=== PATIENT | male | born 1940 | race Caucasian/White ===

== ENCOUNTER → 2017-02-27 | Outpatient (CLI) | payer MEDICARE, OTHER ==
--- NOTE | 2017-03-02 08:00 | US ---
EXAM DESCRIPTION: Venous,Lower Extremity RT CLINICAL HISTORY: 76 years, Male, CELLULITIS RIGHT LOWER LEG COMPARISON: None TECHNIQUE: Duplex venous ultrasound of the right lower extremity was performed. FINDINGS: The right lower extremity veins are fully compressible and demonstrate physiologic responses to Valsalva maneuvers. Color Doppler images show no intraluminal filling defect. IMPRESSION: Negative exam. No evidence of DVT in the right lower extremity. Electronically signed by: John Rios MD 03/02/2017 7:59 AM CDT
== END | disposition home or self-care (01) ==
LOC: US 14:01
PROVIDERS: ATTEND Nurse Practitioner Family
DX: R60.0 Localized edema (principal); L03.115 Cellulitis of right lower limb

== ENCOUNTER → 2017-07-06 | Outpatient (CLI) | payer MEDICARE, MEDICAID | END | disposition home or self-care (01) | LOC: GMAB 15:06 | PROVIDERS: ATTEND Family Medicine | DX: I50.22 Chronic systolic (congestive) heart failure (principal); L03.115 Cellulitis of right lower limb; R53.82 Chronic fatigue, unspecified ==

== ENCOUNTER → 2017-08-20 | Outpatient (CLI) | payer MEDICARE, OTHER | END | disposition home or self-care (01) | LOC: GMA 17:20 | PROVIDERS: ATTEND Nurse Practitioner Family | DX: L03.115 Cellulitis of right lower limb (principal) ==

== ENCOUNTER 2017-11-16 09:33 | Inpatient (IN) | payer MEDICARE, OTHER ==
[2017-11-16] MEDS ORDERED: LIDOCAINE 1% 10 ML VIAL INJ ONE (09:54)
[2017-11-16] MEDS ORDERED: CHLORHEXIDINE GLUCONATE 4 % 15 ML UD TOP ONE (09:55)
[2017-11-16] MEDS ORDERED: SODIUM CHLORIDE 0.9% (FLUSH) 10 ML SYG IV PRN ×2 (09:55→12:59)
--- NOTE | 2017-11-16 10:23 | ED.PDOC ---
History of Present Illness - General Chief Complaint: Skin/Abrasion/Tear Stated Complaint: right hand swelling Time Seen by Provider: 11/16/17 09:54 Source: RN/MD, group home records - History of Present Illness Initial Comments: PT SENT TO THE ED FROM [facility] FOR RIGHT HAND SWELLING AND REDNESS THAT HAS FAILED TO IMPROVE ON OUTPATIENT ABX. PT HAS BEEN GIVEN IM ROCEPHIN AND PO BACTRIM WITH OUT IMPROVEMENT OVER THE PAST SEVERAL DAYS. HPI AND ROS LIMITED DUE TO PTS MENTAL CAPACITY. Timing/Duration: 1 week, getting worse Severity: severe Improving Factors: nothing Worsening Factors: nothing Associated Symptoms: denies symptoms Allergies/Adverse Reactions: Allergies Latex Allergy (Verified 11/16/17 09:51) Home Medications: Ambulatory Orders Doxazosin Mesylate 2 mg PO DAILY 11/09/12 Ferrous Sulfate [Iron] 325 mg PO BID #0 tab 11/09/12 Finasteride 5 mg PO DAILY 11/09/12 Gabapentin [Neurontin] 300 mg PO TID 11/09/12 HYDROcodone 5MG/APAP 325MG [[place] 5/325] 1 ea PO Q4-6H PRN #0 tab 11/09/12 Ibuprofen 400 mg PO QID PRN #0 cap 11/09/12 Omeprazole [Prilosec] 20 mg PO DAILY 11/09/12 Paroxetine HCl 40 mg PO HS 11/09/12 Simvastatin 40 mg PO DAILY #0 tab 11/09/12 Simvastatin [Zocor] 80 mg PO 11/09/12 Review of Systems - Review of Systems Constitutional: States: see HPI EENTM: States: see HPI Respiratory: States: see HPI Cardiology: States: see HPI Gastrointestinal/Abdominal: States: see HPI Genitourinary: States: see HPI Musculoskeletal: States: see HPI Skin: States: see HPI Neurological: States: see HPI Endocrine: States: see HPI Hematologic/Lymphatic: States: see HPI Past Medical History (General) - Patient Medical History Hx Seizures: No Hx Stroke: No Hx Cardiac Disorders: No Hx Congestive Heart Failure: No Hx Hypertension: Yes Hx Diabetes: No Hx Gastroesophageal Reflux: Yes Hx MRSA: No - Vaccination History Hx Influenza Vaccination: - unknown Hx Pneumococcal Vaccination: - unknown - Social History Hx Tobacco Use: No Hx Alcohol Use: No Hx Substance Use: No Hx Physical Abuse: No Hx Emotional Abuse: No - Activities of Daily Living Senior Care/Assisted Living (if applicable):: [facility] Family Medical History - Family History Mother Family History: Unknown Physical Exam - Physical Exam General Appearance: Alert, No apparent distress Ears, Nose, Throat: normal ENT inspection Neck: normal inspection Respiratory: lungs clear, normal breath sounds, no respiratory distress Cardiovascular/Chest: regular rate, rhythm, no murmur Gastrointestinal/Abdominal: non tender, soft Extremity: other - SEVERE SWELLING AND REDNESS TO THE DORSUM OF RIGHT HAND, FLUCTUANCE NOTED. REDNESS EXTENDS TOWARD THE WRIST. Neurologic: alert, normal mood/affect Skin Exam: normal color, warm/dry Procedures - Incision and Drainage #1 Site: DORSUM OF RIGHT HAND Procedure and Prep: betadine prep, gauze wick placed - IODOFORM PACKING PLACED, irrigated, pus drained, other - 1% LIDOCAINE INFUSED SC. Blade Size: 11 Procedure Comments: APPROXIMATELY 100CC OF PURULENT DRAINAGE FROM I&D SITE. Departure - Departure Clinical Impression: Abscess Cellulitis Qualifiers: Site of cellulitis: extremity Site of cellulitis of extremity: upper extremity Laterality: right Qualified Code(s): L03.113 - Cellulitis of right upper limb Time of Disposition: 11:04 Disposition: Admit Patient Condition: Fair Departure Forms: ED Discharge - Pt. Copy, Patient Portal Self Enrollment Instructions: DI for Abrasion Referrals: Gilmer Tello MD [Primary Care Provider] - 1-2 Weeks Home Medications: Ambulatory Orders Doxazosin Mesylate 2 mg PO DAILY 11/09/12 Ferrous Sulfate [Iron] 325 mg PO BID #0 tab 11/09/12 Finasteride 5 mg PO DAILY 11/09/12 Gabapentin [Neurontin] 300 mg PO TID 11/09/12 HYDROcodone 5MG/APAP 325MG [[place] 5/325] 1 ea PO Q4-6H PRN #0 tab 11/09/12 Ibuprofen 400 mg PO QID PRN #0 cap 11/09/12 Omeprazole [Prilosec] 20 mg PO DAILY 11/09/12 Paroxetine HCl 40 mg PO HS 11/09/12 Simvastatin 40 mg PO DAILY #0 tab 11/09/12 Simvastatin [Zocor] 80 mg PO 11/09/12 Decision To Admit - Decistion To Admit Decision to Admit Reason: Admit from ER Decision to Admit Date: 01/08/18 - CASE DISCUSSED WITH JOANIE MALONEY NP WHO AGREES TO ADMIT PATIENT. Decision to Admit Time: 11:04
[2017-11-16] MEDS ORDERED: IODOFORM 1/4 INCH 1 EA BTTL TOP ONE (10:27)
[2017-11-16] MEDS ORDERED: VANCOMYCIN HCL INJ 2,000 MG in SODIUM CHLORIDE 0.9% 500ML 500 ML IVPB SCH (10:30)
[2017-11-16] MEDS ORDERED: VANCOMYCIN HCL INJ 1,000 MG VIAL IVPB ONE ×2 (10:31→10:46)
[2017-11-16] MEDS ORDERED: SODIUM CHLORIDE 0.9% 500ML 500 ML ONE ×2 (10:31→10:46)
--- NOTE | 2017-11-16 10:32 | RAD ---
EXAM DESCRIPTION: Right hand, 3 views CLINICAL HISTORY: Right hand cellulitis. Assess for osteomyelitis FINDINGS/ IMPRESSION: Marked dorsal soft tissue swelling consistent with cellulitis. 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 No fracture or acute osteochondral lesion Electronically signed by: Gildardo Garrido MD 11/16/2017 10:31 AM [facility]
--- NOTE | 2017-11-16 12:13 | HP ---
SUPERVISING PHYSICIAN: Gildardo Lewis MD CHIEF COMPLAINT: Right hand swelling and redness. HISTORY OF PRESENT ILLNESS: Mr. Cervantes is a 77-year-old male patient who is a resident at [facility]. Apparently he has had some swelling and redness on his right hand for the last seven days. He was placed on Bactrim as an outpatient and even was given some IM Rocephin over the weekend at [facility]. Given the fact that he did not have any improvement in those symptoms, he came to the Emergency Room today. In the Emergency Room, the Emergency Room physician performed an I&D to the dorsal aspect of the right hand. An estimated 100 mL of purulent drainage was drained from the site. This was irrigated and packed and dressed. Given the degree of cellulitis, the patient was referred for admission. The patient did have some labs which showed white count normal at 7.3, hemoglobin 10.1, hematocrit 30.1, platelet count 233. There is a mild left shift at 85.3. Chemistries were done and showed sodium 129, potassium 5.2, chloride 98, BUN 27, creatinine 1.88, glucose 148, calcium 9.1. An actual x-ray was done of the hand for concern for osteomyelitis. This was negative for findings of osteomyelitis. The patient has been admitted and is in no active distress so far. His vital signs are acceptable. PAST MEDICAL HISTORY: 1. Previous episodes of cellulitis of the hands and the legs which has grown out MRSA in the past. 2. Congestive heart failure. 3. Dementia. 4. Hypertension. 5. Gastroesophageal reflux disease. 6. Gout. 7. Left ventricular hypertrophy. 8. Osteoarthritis. 9. Parkinson's. 10. Syncope. 11. Benign prostatic hypertrophy. PAST SURGICAL HISTORY: 1. Bilateral hip surgeries. 2. Right total knee arthroplasty times 2. It was infected at one point with MRSA and he needed to be on IV vancomycin. 3. Diastolic heart failure. Last ejection fraction was 60% and showed mild left ventricular hypertrophy and was consistent with grade 3 diastolic dysfunction. This was done in July of 2017. CURRENT MEDICATIONS: 1. Lasix 20 mg p.o. daily. 2. Aldactone 25 mg once a day on Thursday/Thursday/Thursday// Thursday. 3. Remeron 15 mg p.o. q.h.s. 4. Metoprolol 50 mg p.o. daily. 5. Ativan 0.5 mg one tablet by mouth 3 times a day. 6. Paroxetine 500 mg p.o. b.i.d. 7. Venelex ointment 87 mg use as directed. 8. Atorvastatin 20 mg p.o. daily. 9. Seroquel 100 mg p.o. b.i.d. 10. Vitamin B12 1000 mcg p.o. daily. 11. Albuterol nebulizer b.i.d. and q.4h. p.r.n. 12. Celexa 10 mg 2 times a day. 13. Prilosec 20 mg p.o. b.i.d. 14. Plavix 75 mg daily. ALLERGIES: NO KNOWN DRUG ALLERGIES. FAMILY HISTORY: Both parents are from unknown causes. He does not report any health problems with any of his brothers or sisters. SOCIAL HISTORY: The patient is a nonsmoker. He used to drink alcohol, but he has been a resident of [facility] for the last year or so. He is . REVIEW OF SYSTEMS: CONSTITUTIONAL: No fever or chills. No recent weight loss or weight gain. HEENT: No headaches, vision changes, ear pain, nasal congestion or sore throat. NECK: No stiffness, swelling or pain. RESPIRATORY: No cough, hemoptysis or pleuritic chest pain. CARDIOVASCULAR: No chest pain, palpitations or peripheral edema. GASTROINTESTINAL: No nausea, vomiting, diarrhea, constipation or abdominal pain. GENITOURINARY: No dysuria, frequency or flank pain. MUSCULOSKELETAL: Positive for various joint pains, but no joint swelling. INTEGUMENTARY: Positive for cellulitis of the right hand as well as he has some redness of the lower extremities. ENDOCRINE: No polydipsia, polyuria, polyphagia. No heat or cold intolerance. HEMATOLOGIC: Positive for easy bruising. No previous transfusion reactions. PHYSICAL EXAMINATION: VITAL SIGNS: Blood pressure 163/85. Heart rate 73. Respiratory rate 24. Temperature 97.3. Oxygen saturation 98%. GENERAL: Mr. Cervantes is a 77-year-old male patient who is chronically ill in appearance, but in no active distress currently. HEENT: Normocephalic, atraumatic. Pupils are equal and reactive. No nasal drainage. Throat with slightly dry buccal mucosa. NECK: Supple. Midline trachea. No jugular venous distention. CHEST: Symmetrical with equal rise and fall of the chest with inspiration and expiration. Lung sounds are diminished in the bases. Otherwise, clear to auscultation bilaterally. CARDIOVASCULAR: Regular rate and rhythm. Normal S1, S2. ABDOMEN: Soft, obese. Positive bowel sounds. GENITOURINARY: Deferred. EXTREMITIES: Lower extremities with bilateral edema and stasis dermatitis with active bilateral lower extremity cellulitis as well. The right hand with some erythema and edema with a dressing in place as well. Active wound was not assessed due to the fact that it was I&D in the Emergency Room and re-dressed. NEUROLOGIC: The patient is alert and oriented. Moves all extremities. Extraocular muscles are intact. LABORATORY: Labs and films are as discussed in history of present illness. ASSESSMENT: 1. Right hand cellulitis which failed outpatient therapy. 2. Bilateral lower extremity cellulitis. 3. Acute kidney injury secondary to dehydration. 4. History of methicillin-resistant Staphylococcus aureus wounds in the past. 5. History of diastolic heart failure. PLAN: 1. At this time, we will utilize vancomycin. I have asked the nurses to actually culture the wound as it was not done in the Emergency Room. We will adjust antibiotics accordingly based on culture results. 2. I have ordered some IV fluids given the fact that he does have acute kidney injury. We will recheck labs in the morning. We will need to monitor for volume overload given his history of diastolic heart failure. 3. We will start on DVT prophylaxis and GI ulcer prophylaxis as well. #[id number] [facility]
[2017-11-16] MEDS ORDERED: IV SET AND CAP CHANGE INJ INJ SCH (13:00)
[2017-11-16] MEDS ORDERED: VANCOMYCIN PER PHARMACY INJ SCH (13:30)
[2017-11-16] MEDS ORDERED: ALBUTEROL SULFATE 2.5 MG/3 ML VIAL NEB ONE ×2 (14:07→17:33)
[2017-11-16] MEDS: IPRATROPIUM/ALBUTEROL 3 ML VIAL INH SCH ×2 (16:25→20:20)
[2017-11-16] MEDS: ENOXAPARIN SODIUM 40 MG/0.4 ML SYG SUBCU SCH (17:40)
[2017-11-16] MEDS ORDERED: PANTOPRAZOLE SODIUM TAB 40 MG PO ONE (20:17)
[2017-11-16] MEDS: SODIUM CHLORIDE 0.9% 1000ML 1,000 ML IVS PRN (20:26)
[2017-11-16] MEDS: QUEtiapine FUMARATE 100 MG TAB PO SCH (21:04)
[2017-11-16] MEDS: MIRTAZAPINE 15 MG TAB PO SCH (21:04)
[2017-11-16] MEDS: LORazepam 0.5 MG TAB PO SCH (22:14)
[2017-11-17] MEDS: PANTOPRAZOLE SODIUM TAB 40 MG PO SCH (06:41)
[2017-11-17] MEDS: LORazepam 0.5 MG TAB PO SCH (07:43)
[2017-11-17] MEDS: ENOXAPARIN SODIUM 40 MG/0.4 ML SYG SUBCU SCH (07:43)
[2017-11-17] MEDS: QUEtiapine FUMARATE 100 MG TAB PO SCH ×2 (07:43→20:49)
[2017-11-17] MEDS: IPRATROPIUM/ALBUTEROL 3 ML VIAL INH SCH ×4 (07:52→20:11)
[2017-11-17] MEDS: SODIUM CHLORIDE 0.9% 1000ML 1,000 ML IVS PRN ×2 (09:14→22:49)
[2017-11-17] MEDS: CLOPIDOGREL 75 MG TAB PO SCH (09:14)
[2017-11-17] MEDS: METOPROLOL TARTRATE 50 MG TAB PO SCH (09:14)
[2017-11-17] MEDS: FUROSEMIDE 40 MG TAB PO SCH (09:15)
[2017-11-17] MEDS: CITALOPRAM HBR 20 MG TAB PO SCH ×2 (09:20→20:49)
[2017-11-17] MEDS ORDERED: VANCOMYCIN HCL INJ 1,000 MG VIAL IVPB ONE (10:19)
[2017-11-17] MEDS ORDERED: SODIUM CHLORIDE 0.9% 250ML 250 ML ONE (10:19)
[2017-11-17] MEDS: CHLORHEXIDINE GLUCONATE 4 % 15 ML UD TOP SCH (10:23)
[2017-11-17] MEDS: VANCOMYCIN HCL INJ 1,000 MG in SODIUM CHLORIDE 0.9% 250ML 250 ML IVPB SCH (10:52)
--- NOTE | 2017-11-17 13:59 | PN ---
SUPERVISING PHYSICIAN: Gildardo Lewis MD DATE: 11/17/17 SUBJECTIVE: The patient states no significant shortness of breath or discharge at this time. However, the patient does have significant dementia. Overnight, I got called regarding the fact that the patient was up and down attempting to get out of bed on multiple occasions. We did resume his medications including Remeron as well as Seroquel. This morning, I have had the nurse remove the dressing from his right hand. The erythema on the arm seems less pronounced. The packing was removed from the wound and there was some purulent drainage expressed once this was removed. OBJECTIVE: VITAL SIGNS: Blood pressure 120/58. Heart rate 87. Respiratory rate 22. Temperature 96.8. Oxygen saturation 97%. GENERAL: Mr. Cervantes is a 77-year-old male patient who is in no significant distress at this time. However, with movement, he does have some respiratory distress.ss. HEENT: Normocephalic, atraumatic. Pupils are equal and reactive. No nasal drainage. Moist buccal mucosa. NECK: Supple. Midline trachea. No jugular venous distention. CHEST: Symmetrical with equal rise and fall of the chest with inspiration and expiration. Lungs sounds with some bibasilar rales, but no wheezing. CARDIOVASCULAR: Regular rate and rhythm. Normal S1, S2. ABDOMEN: Soft, obese. Positive bowel sounds. GENITOURINARY: Deferred. LOWER EXTREMITIES: Still with edema and cellulitis. However, this appears less pronounced. Right hand as stated above, less pronounced erythema and the edema is actually a little bit improved. However, he still has some drainage coming from the incision site. NEUROLOGIC: The patient is alert, but has confusion on occasion and seems quite forgetful. He does have history of dementia. LABORATORY:Labs have been reviewed. White count 6,000, hemoglobin 9.6, hematocrit 28.8, platelet count 204. Chemistry shows some improvement and BUN and creatinine are 26 and 1.6 respectively. Sodium is now 130, glucose 119. ASSESSMENT: 1. Right hand cellulitis status post I&D. 2. Bilateral lower extremity cellulitis. 3. Acute kidney injury secondary to dehydration. 4. Dementia with possible superimposed delirium. PLAN: 1. Given the improvement in the cellulitis, I fell like vancomycin is the appropriate antibiotic to be used at this time. The culture has not grown anything as of yet. However, given the purulent drainage still being expressed from the incision site, I have put a consult in for Dr. Alvarez. 2. We will continue IV fluids for the time being given his acute kidney injury. He does have a history of diastolic heart failure, however, he is not showing any signs of heart failure at this time. 3. The patient was on Seroquel and Remeron at the skilled nursing. He also appears to have some p.r.n. Ativan. This does not appear to really last very long , so I am going to change this to clonazepam and see if it has a longer lasting effect on him. #[id number] [facility]
--- NOTE | 2017-11-17 14:08 | CONS ---
DATE OF CONSULTATION: 11/17/17 REFERRING: Hospitalist Service, Gildardo Lewis MD HISTORY OF PRESENT ILLNESS: The patient is a 77-year-old [facility] patient who developed tender swelling in his right hand. He was treated with oral Bactrim and had IM Rocephin. He did not have improvement and presented to the Emergency Room yesterday where it was drained through a less 1 cm incision in the middle of the dorsal aspect of the right hand. It appears to have decreased erythema since then. He is afebrile. At the time of admission, his white count was 7.3 with a hemoglobin of 10.1. Electrolytes were somewhat screwed up with sodium 129, potassium 5.2, creatinine 1.8 and blood sugar 144. X-rays did no show any evidence of osteomyelitis. I have been asked to give recommendations for care. PAST MEDICAL HISTORY: 1. Cellulitis of the hands and legs with methicillin-resistant Staphylococcus aureus. 2. History of congestive heart failure, diastolic. 3. Dementia. 4. Hypertension. 5. Gastroesophageal reflux disease. 6. Gout. 7. Left ventricular hypertrophy. 8. Osteoarthritis. 9. Parkinsonism. 10. Syncope. 11. Benign prostatic hypertrophy. PAST SURGICAL HISTORY: 1. Bilateral total hip arthroplasty. 2. Right total knee arthroplasty times 2. MEDICATIONS: 1. Lasix. 2. Aldactone. 3. Remeron. 4. Metoprolol. 5. Ativan. 6. Paroxetine. 7. Venelex. 8. Atorvastatin. 9. Seroquel. 10. Vitamin B 12. 11. Albuterol. 12. Celexa. 13. Prilosec. 14. Plavix. ALLERGIES: NO KNOWN DRUG ALLERGIES. FAMILY HISTORY: Unremarkable. SOCIAL HISTORY: The patient does not smoke, drink, but has not for at least the last year in the [facility]. He is and retired. REVIEW OF SYSTEMS: Noncontributory. PHYSICAL EXAMINATION: GENERAL: The patient is in no acute distress. VITAL SIGNS: The patient is currently afebrile. EXTREMITIES: His right upper extremity reveals some edema to the right hand. There is minimal erythema. There is mainly serous drainage on the wound which was re-dressed. LABORATORY: Today, the white count is within normal limits. Cultures show no growth at 24 hours. ASSESSMENT: 1. Right hand cellulitis and abscess status post drainage with cultures pending. 2. Multiple medical issues. PLAN: Continue cleaning the wound with Hibiclens. Elevation of the hand. Continue antibiotics awaiting the culture results. #[id number] [facility]
[2017-11-17] MEDS ORDERED: LORazepam 1 MG TAB ONE (15:28)
[2017-11-17] MEDS ORDERED: LORazepam 1 MG TAB PO ONE (15:32)
[2017-11-17] MEDS: ATORVASTATIN 20 MG TAB PO SCH (20:49)
[2017-11-17] MEDS: MIRTAZAPINE 15 MG TAB PO SCH (20:49)
[2017-11-18] MEDS: PANTOPRAZOLE SODIUM TAB 40 MG PO SCH (06:00)
--- NOTE | 2017-11-18 07:17 | RAD ---
Procedure: XR CHEST 1 VIEW Exam Date: 11/18/2017 Ordering Provider: Pino Pryor Clinical Indication: Shortness of breath, chest pain Comparison: 11/08/2012 Findings: Cardiomediastinal silhouette: Cardiomegaly Pulmonary vasculature : Unremarkable Aortic contour: Unremarkable Focal lung consolidation: None Pleural effusion: None Pneumothorax: None Bones and soft tissues: Nonacute Impression: 1. No acute abnormalities in the chest. 2. Cardiomegaly. Electronically signed by: Wili Cameron MD 11/18/2017 7:16 AM [facility]
[2017-11-18] MEDS: IPRATROPIUM/ALBUTEROL 3 ML VIAL INH SCH ×4 (08:00→19:59)
[2017-11-18] MEDS: SODIUM CHLORIDE 0.9% 1000ML 1,000 ML IVS PRN ×2 (09:04→23:05)
[2017-11-18] MEDS: QUEtiapine FUMARATE 100 MG TAB PO SCH ×2 (09:06→20:22)
[2017-11-18] MEDS: CITALOPRAM HBR 20 MG TAB PO SCH ×2 (09:06→20:22)
[2017-11-18] MEDS: FUROSEMIDE 40 MG TAB PO SCH (09:06)
[2017-11-18] MEDS: METOPROLOL TARTRATE 50 MG TAB PO SCH (09:06)
[2017-11-18] MEDS: ENOXAPARIN SODIUM 40 MG/0.4 ML SYG SUBCU SCH (09:07)
[2017-11-18] MEDS: CLOPIDOGREL 75 MG TAB PO SCH (09:07)
[2017-11-18] MEDS: CHLORHEXIDINE GLUCONATE 4 % 15 ML UD TOP SCH (09:08)
[2017-11-18] MEDS ORDERED: VANCOMYCIN HCL INJ 1,000 MG VIAL IVPB ONE ×2 (10:21→10:26)
[2017-11-18] MEDS ORDERED: SODIUM CHLORIDE 0.9% 250ML 250 ML ONE ×2 (10:21→10:25)
[2017-11-18] MEDS: VANCOMYCIN HCL INJ 1,000 MG in SODIUM CHLORIDE 0.9% 250ML 250 ML IVPB SCH ×2 (10:54→12:35)
[2017-11-18] MEDS ORDERED: VANCOMYCIN HCL INJ 500 MG VIAL ONE (12:10)
[2017-11-18] MEDS ORDERED: SODIUM CHL 0.9% 100ML MINI-BAG 100 ML IVPB ONE (12:10)
[2017-11-18] MEDS ORDERED: SODIUM CHLORIDE 0.9% 100ML 100 ML IVPB ONE (12:12)
[2017-11-18] MEDS: VANCOMYCIN HCL INJ 1,000 MG, VANCOMYCIN HCL INJ 250 MG in SODIUM CHLORIDE 0.9% 250ML 25... IVPB SCH (12:29)
--- NOTE | 2017-11-18 14:04 | PN ---
SUPERVISING PHYSICIAN: Gildardo Lewis MD DATE: 11/18/17 SUBJECTIVE: The patient has no significant complaints at this time. Once again , he does have dementia and has had episodes where he likes to get up and down out of bed. It seems that potentially the current medications being used are helping. He is getting clonazepam scheduled along with the Seroquel. As needed Ativan is being given as well. He has been evaluated by Dr. Alvarez and wound care is being done. OBJECTIVE: VITAL SIGNS: Blood pressure 168/75. Heart rate 93. Respiratory rate 21. Temperature 98.2. Oxygen saturation 95%. GENERAL: Mr. Cervantes is a 77-year-old male patient in no severe distress at this time. HEENT: Normocephalic, atraumatic. Pupils are equal and reactive. No nasal drainage. Moist buccal mucosa. NECK: Supple. Midline trachea. No jugular venous distention. CHEST: Symmetrical with equal rise and fall of the chest with inspiration and expiration. Lungs sounds are with some bibasilar diminishing and minimal rales , but no wheezing. CARDIOVASCULAR: Regular rate and rhythm. Normal S1, S2. ABDOMEN: Soft. Positive bowel sounds. GENITOURINARY: Deferred. EXTREMITIES: Lower extremities with edema and cellulitis, however, this is improved. The right hand edema and erythema are improved as well. No active drainage from the incision site at this time. NEUROLOGIC: The patient is alert, but confused, but he follows commands and does not have any focal deficits. LABORATORY: Labs reviewed. White blood cell count 7.1, hemoglobin 10.0, hematocrit 29.9, platelet count 250. ESR 80, CRP 5.2. Sodium 130, potassium 4.6, chloride 99, CO2 21, BUN 24, creatinine 1.5, glucose 107, calcium 8.7. Culture is still not growing anything. ASSESSMENT: 1. Right hand cellulitis status post I&D. 2. Bilateral lower extremity cellulitis. 3. Acute kidney injury secondary to dehydration. 4. Dementia with superimposed delirium. PLAN: 1. We will continue the vancomycin for now. We will consider moving to a p.o. antibiotic, however, this is what failed as an outpatient. He is showing clinical improvement at this time regarding the cellulitis. 2. Acute kidney injury is improving. He is not showing any signs of volume overload, so we will continue this for now. 3. Continue all other current medications. Hopefully, we will be able to discharge in the next 24 to 48 hours depending on his status. [facility] so [facility] be an easy transfer back to that facility. #[id number] [facility]
[2017-11-18] MEDS: ATORVASTATIN 20 MG TAB PO SCH (20:21)
[2017-11-18] MEDS: MIRTAZAPINE 15 MG TAB PO SCH (20:22)
[2017-11-19] MEDS ORDERED: IPRATROPIUM/ALBUTEROL 3 ML VIAL NEB ONE (02:12)
[2017-11-19] MEDS: PANTOPRAZOLE SODIUM TAB 40 MG PO SCH (06:14)
[2017-11-19] MEDS: METOPROLOL TARTRATE 50 MG TAB PO SCH (08:42)
[2017-11-19] MEDS: QUEtiapine FUMARATE 100 MG TAB PO SCH (08:42)
[2017-11-19] MEDS: CITALOPRAM HBR 20 MG TAB PO SCH (08:42)
[2017-11-19] MEDS: CLOPIDOGREL 75 MG TAB PO SCH (08:42)
[2017-11-19] MEDS: FUROSEMIDE 40 MG TAB PO SCH (08:42)
[2017-11-19] MEDS: ENOXAPARIN SODIUM 40 MG/0.4 ML SYG SUBCU SCH (08:43)
[2017-11-19] MEDS: CHLORHEXIDINE GLUCONATE 4 % 15 ML UD TOP SCH (08:56)
[2017-11-19] MEDS: IPRATROPIUM/ALBUTEROL 3 ML VIAL INH SCH ×3 (09:45→17:39)
[2017-11-19] MEDS ORDERED: levoFLOXacin 500 MG TAB PO SCH (11:00)
[2017-11-19] MEDS ORDERED: VANCOMYCIN HCL INJ 1,000 MG VIAL IVPB ONE (11:18)
[2017-11-19] MEDS ORDERED: SODIUM CHLORIDE 0.9% 250ML 250 ML ONE (11:18)
[2017-11-19] MEDS ORDERED: VANCOMYCIN HCL INJ 500 MG VIAL ONE (11:18)
[2017-11-19] MEDS: VANCOMYCIN HCL INJ 1,000 MG, VANCOMYCIN HCL INJ 250 MG in SODIUM CHLORIDE 0.9% 250ML 25... IVPB SCH (11:32)
[2017-11-19 15:13] VITALS: BP 182/85; TEMP 98; O2SAT 99
--- NOTE | 2017-11-20 10:32 | DS ---
SUPERVISING PHYSICIAN: Gildardo Lewis MD DISCHARGE DIAGNOSIS: 1. Right hand cellulitis status post incision and drainage with culture results showing no growth with the patient having failed initial outpatient treatment plan on Bactrim with the patient showing good response to vancomycin and initiation of p.o. antibiotics to include doxycycline and Levaquin. 2. Bilateral lower extremity cellulitis, showing improvement. 3. Acute kidney injury secondary to dehydration, improving with fluids, felt to be secondary to dehydration. 4. Dementia with superimposed delirium, stable. REASON FOR HOSPITALIZATION: Mr. Cervantes is a 77-year-old male patient who is a resident at [facility]. Apparently he has had some swelling and redness on his right hand for the last seven days. He was placed on Bactrim as an outpatient and even was given some IM Rocephin over the weekend at [facility]. Given the fact that he did not have any significant improvement in those symptoms, he came to the Emergency Room on 06/26. In the Emergency Room, the Emergency Room physician performed an incision and drainage to the dorsal aspect of the right hand. An estimated 100 mL of purulent drainage was drained from the site. This was irrigated and packed and dressed. Given the degree of cellulitis, the patient was then admitted to the Medical/Surgical Floor for ongoing treatment with parenteral antibiotic. His initial laboratory studies showed white count 7.3 with a mild left shift. Chemistries were done and showed sodium 129, potassium 5.2, BUN 27 , creatinine 1.88, calcium 9.1. An x-ray was done of the hand for concern for osteomyelitis. This was negative per radiologic interpretation. The patient was then admitted to the Medical/Surgical Floor for ongoing treatment and further evaluation. He was in stable condition at time of admission. LABORATORY: Initial white count was 7,300. At discharge, it was 7,100. Hemoglobin and hematocrit were stable and at discharge were 10.0 and 29.9. Platelet count was 250,000. Differential did show a left shift that was improving prior to discharge. Initial chemistry did show a low sodium of 129, but this improved prior to discharge and was up to 130. Potassium was 5.2 initially on admission and at discharge was 4.6. BUN 27, creatinine 1.8, but at discharge after fluids, creatinine had gone down to 1.5 as well as BUN to 24. Liver functions were all within normal limits. Lactic acid was normal at 7.7. He did have a C-reactive protein elevated at 5.2. He had three urinalyses that were completed. The last urinalysis after catheter was removed did show a large amount of blood and no bacteria, no white cells. He had a vancomycin trough that was 9.5. MICROBIOLOGY: Right hand would culture showed no growth at 72 hours. RADIOLOGY: X-ray of the right hand was completed prior to admission and per radiologic interpretation showed no fracture or osteochondral lesions. There was marked dorsal swelling of the soft tissue consistent with cellulitis, but no focal demineralization or diagnostic erosions to suggest osteomyelitis. He also had a chest x-ray on 11/18/17 and per radiologic interpretation of a single view chest, there were no acute abnormalities noted within the chest except cardiomediastinal. MEDICAL CONSULTATIONS: Dr. Alvarez, general surgery, for wound management. Please see him consultation for full details and treatment plan. HOSPITAL COURSE: Mr. Cervantes was admitted as noted from [facility] for cellulitis of the right hand. He had failed outpatient treatment plan and after an I&D of the area, he was started on antibiotics to include vancomycin. He did show good response to wound management and was felt clinically well enough and improved that he could continue with outpatient management with p.o. medications. PLAN: Mr. Cervantes was discharged to return to [facility] with instructions to establish an appointment for followup early next week if possible with Dr. Tello. He was to resume his home medications as noted per the medication administration record and to take new prescriptions as directed. Wound care was to consist of twice daily wound management with Hibiclens and keep sterile dressing over the site and clean and dry. He was to return to the hospital should he have any concerning symptoms. DIET AT DISCHARGE: Regular diet as tolerated. ACTIVITY: Increase activity as tolerated per physical therapy. NEW PRESCRIPTIONS AT DISCHARGE: 1. Doxycycline 100 mg q.12h., #28. 2. Levaquin 500 mg q.24h., #14. He was to stop taking the previous antibiotics as prior to admission. CONDITION ON DISCHARGE: Stable and improved. #[id number]
== END 2017-11-19 13:55 | DRG 603 ==
LOC: ER 09:33 → MS 12:11
PROVIDERS: ADMIT Nurse Practitioner; ATTEND Nurse Practitioner
PROC: 0H9GXZZ Drainage of Left Hand Skin, External Approach (ICD-10-PCS; principal; 2017-11-16)
DX: L03.113 Cellulitis of right upper limb (principal); I50.32 Chronic diastolic (congestive) heart failure; L03.115 Cellulitis of right lower limb; L03.116 Cellulitis of left lower limb; N17.9 Acute kidney failure, unspecified; F05 Delirium due to known physiological condition; L02.511 Cutaneous abscess of right hand; E87.1 Hypo-osmolality and hyponatremia; Z68.41 Body mass index [BMI] 40.0-44.9, adult; E86.0 Dehydration; I11.0 Hypertensive heart disease with heart failure; F03.90 Unspecified dementia, unspecified severity, without behavioral disturbance, psychotic disturbance, mood disturbance, and anxiety; K21.9 Gastro-esophageal reflux disease without esophagitis; M10.9 Gout, unspecified; M19.90 Unspecified osteoarthritis, unspecified site; G20 Parkinson's disease; N40.0 Benign prostatic hyperplasia without lower urinary tract symptoms; Z96.643 Presence of artificial hip joint, bilateral; Z96.651 Presence of right artificial knee joint; Z79.899 Other long term (current) drug therapy; Z86.14 Personal history of Methicillin resistant Staphylococcus aureus infection; Z79.02 Long term (current) use of antithrombotics/antiplatelets; E66.9 Obesity, unspecified; Z91.040 Latex allergy status; Z79.891 Long term (current) use of opiate analgesic

== ENCOUNTER → 2017-11-23 | Outpatient (CLI) | payer MEDICARE, OTHER ==
--- NOTE | 2017-11-23 21:12 | US ---
EXAM DESCRIPTION: Venous,Upper Extremity RT: ULTRASOUND. CLINICAL HISTORY: LOCALIZED EDEMA COMPARISON: None Available. TECHNIQUE: Two -dimensional and doppler sonographic evaluation of the deep venous system of the right upper extremity. FINDINGS: Doppler evaluation shows normal color flow and normal phasicity and augmentation of the right subclavian, jugular, axillary, basilic, brachial, radial vein and ulnar vein.. Cephalic vein was not seen. The right upper extremity deep veins showed normal occlusion with transducer pressure. Two-dimensional survey showed no echogenic thrombus within these veins. IMPRESSION: Duplex ultrasound evaluation of the thyroid upper extremity deep venous system showing no significant insufficiency or thrombosis . Electronically signed by: Reji Haines MD 11/23/2017 9:10 PM [employer] Workstation: [id number]
== END | disposition home or self-care (01) ==
LOC: US 13:25
PROVIDERS: ATTEND Family Medicine
DX: R60.0 Localized edema (principal)

== ENCOUNTER → 2017-12-07 | Outpatient (CLI) | payer MEDICARE, OTHER ==
--- NOTE | 2017-12-07 16:31 | US ---
EXAM DESCRIPTION: Venous,Upper Extremity RT: ULTRASOUND. CLINICAL HISTORY: CELLULITIS OF THE ARM COMPARISON: Duplex ultrasound evaluation of the right axilla same date. TECHNIQUE: Two -dimensional and doppler sonographic evaluation of the deep venous system of the right upper extremity. FINDINGS: Doppler evaluation shows normal color flow and normal phasicity and augmentation of the right subclavian, jugular, axillary, basilic, cephalic, brachial, radial vein and ulnar veins. The right upper extremity deep veins showed normal occlusion with transducer pressure. Two-dimensional survey showed no echogenic thrombus within these veins. IMPRESSION: Duplex ultrasound evaluation of the right upper extremity deep venous system showing no occlusion or thrombosis . Electronically signed by: Reji Haines MD 12/07/2017 4:30 PM F[employer]ING LAYER UP
--- NOTE | 2017-12-07 16:35 | US ---
EXAM DESCRIPTION: Soft Tissue,Extremity: ULTRASOUND. CLINICAL HISTORY: SWELLING COMPARISON: None Available. TECHNIQUE: Transcutaneous scanning: Two-dimensional and Doppler modes. FINDINGS: Scanning of the right axilla shows small hypoechoic lymph nodes 5 mm or less in diameter. No discrete solid mass, cyst, or large calcification. No parenchymal edema. No skin changes. No abnormal Doppler vascularity. IMPRESSION: No abnormal solid masses or fluid collections in the right axilla. Electronically signed by: Reji Haines MD 12/07/2017 4:34 PM [employer]
== END ==
LOC: US 10:00
PROVIDERS: ATTEND Family Medicine
DX: R60.0 Localized edema (principal); L03.113 Cellulitis of right upper limb

== ENCOUNTER → 2018-02-21 | Outpatient (CLI) | payer MEDICARE | LOC: GOCC 15:25 | PROVIDERS: ATTEND Family Medicine | DX: N40.1 Benign prostatic hyperplasia with lower urinary tract symptoms (principal); F02.81 Dementia in other diseases classified elsewhere, unspecified severity, with behavioral disturbance ==